=== PATIENT | male | born 1980 | race Caucasian/White ===

== ENCOUNTER 2018-06-16 12:35 | Emergency (ER) | payer SELFPAY ==
[~2018-06-16] VITALS: Ht 170.2 cm; Wt 95.5 kg
[2018-06-16 12:38] VITALS: Ht 170.2 cm; Wt 95.5 kg
[2018-06-16] MEDS ORDERED: NICARDipine HCL 30 MG CAPSULE PO ONE (13:00)
[2018-06-16] MEDS ORDERED: LORAZEPAM 1 MG TAB PO ONE (13:00)
--- NOTE | 2018-06-16 13:19 | ERD ---
ER Documentation Chief Complaint Chief Complaint DRANK TO MUCH TEQUILA LAST NIGHT AND FEELS ANXIOUS HPI Patient is a 37-year-old male with alcohol abuse who presents with alcohol intoxication. The patient was brought in by ambulance. He said that he has been drinking liquor today. He feels palpitations. He reports a headache but has been ambulating normally in the emergency department. Upon review of old medical records this is the patient's first visit to the emergency department. He does not have a primary doctor. ROS All systems reviewed and are negative except as per history of present illness. Medications Home Meds No Active Prescriptions or Reported Meds Allergies Allergies: Coded Allergies: No Known Allergy (Unverified , 06/16/18) PMhx/Soc Medical and Surgical Hx: pt denies Surgical Hx Hx Cardiac Disorders: Yes (HTN) Hx Psychiatric Problems: Yes (ALCOHOL ABUSE ) Hx Alcohol Use: No Hx Substance Use: No Hx Tobacco Use: No Smoking Status: Never smoker FmHx Family History: No diabetes Physical Exam Vitals Vital Signs Date Temp Pulse Resp B/P (MAP) Pulse Ox O2 O2 Flow FiO2 Time Delivery Rate 06/16/18 97.6 101 20 154/94 92 Room Air 12:52 (114) 06/16/18 97.6 105 20 201/108 92 12:38 (139) Physical Exam Const: No acute distress Head: Atraumatic Eyes: Normal Conjunctiva ENT: Normal External Ears, Nose and Mouth. Neck: Full range of motion. No meningismus. Resp: Clear to auscultation bilaterally Cardio: Regular rate and rhythm, no murmurs Abd: Soft, non tender, non distended. Normal bowel sounds Skin: No petechiae or rashes Back: No midline or flank tenderness Ext: No cyanosis, or edema Neur: Awake and alert, cranial nerves II through XII are intact, moving all 4 extremities, gait is normal Results 24 hrs Laboratory Tests Test 06/16/18 12:48 Bedside Glucose 171 mg/dL Current Medications Medications Dose Sig/Tana Start Time Status Last (Trade) Ordered Route PRN Stop Time Admin Dose Reason Admin Nicardipine 30 mg ONCE ONCE 06/16/18 DC 06/16/18 HCl PO 13:00 12:56 (Cardene) 06/16/18 13:01 Lorazepam 1 mg ONCE ONCE 06/16/18 DC 06/16/18 (Ativan) PO 13:00 12:56 1230/18 13:01 Procedures/[facility] Accu-Chek is within normal limits for a nonfasting patient. EKG read by me: Rate/Rhythm: Regular rate and rhythm at a normal rate Intervals: Normal Impression: No evidence of ischemia or arrhythmia Smoking Cessation Therapy: Pt. was lectured for greater than 3 minutes on the health risks of continued smoking and the benefits of cessation. Patient is a 37-year-old male who presents with alcohol intoxication. Sugars within normal limits. EKG shows no signs of ischemia or arrhythmia. Blood pressure was elevated and the patient was given Cardene. I doubt delirium tremens at this time. The patient is answering questions appropriately and has a normal gait. He will be discharged. He can return for any worsening symptoms. He should follow-up with the local clinics within 24-48 hours and I told him he should not be drinking alcohol to excess. Departure Diagnosis: Primary Impression: Alcohol abuse Additional Impressions: HTN (hypertension) Hypertension type: essential hypertension Qualified Codes: I10 - Essential (primary) hypertension Anxiety Condition: Fair Patient Instructions: High Blood Pressure (Hypertension), Alcohol Abuse [facility] Usted se newberry hecho un examen mdico de control que le indica que no est en radha condicin que requiera tratamiento urgente en el Departamento de Emergencia. Un estudio ms profundo y el tratamiento de angel condicin pueden esperar sin ningn riesgo hasta que usted sea atendida/o en el consultorio de angel mdico o radha clnica. Es responsabilidad suya arreglar radha liza para el seguimiento del risa. MANEJO DE CONDICIONES NO URGENTES EN EL FUTURO 1) Si usted tiene un mdico de atencin primaria: Usted debera llamar a angel mdico de atencin primaria antes de venir al departamento de emergencia. Despus de las horas de consultorio, angel doctor o angel asociado/a est disponible por telfono. El mdico o enfermero de fernando en el servicio telefnico puede asesorarle por kami medio para atender el problema, o risa contrario se puede programar radha liza. 2) Si usted no tiene un mdico de atencin primaria: Llame al mdico o clnica de referencia que aparece abajo yao las horas de consultorio para hacer radha liza para que le vean. CLINICAS: [facility] [phone] [facility] [phone] [facility] [phone] [place] [phone] [place] [address] [phone] [facility] [phone] [address] Additional Instructions: Llame al doctor MAANA y selena radha LIZA PARA DENTRO DE 1-2 HUERTA.Dgale a la secretaria que nosotros le instruimos hacer esta liza.Avise o llame si angel condicin se empeora antes de la liza. Regresa aqui si peor o no mejor. KRYS PALACIOS MD Jun 16, 2018 13:19
[2018-06-16 14:05] VITALS: BP 119/65; PULSE 80; RESP 18
== END 2018-06-16 14:08 | disposition home or self-care (01) ==
LOC: E/R 12:35
DX: F10.10 Alcohol abuse, uncomplicated (principal); I10 Essential (primary) hypertension
CPT/HCPCS: 82962; 93005